=== PATIENT | male | born 1975 | race Asian ===

== ENCOUNTER 2018-12-19 14:46 | Emergency (ER) | payer MEDICAID, OTHER ==
[~2018-12-19] VITALS: Ht 167.6 cm; Wt 72.7 kg
[~2018-12-19 14:46] MED LIST: BENZ1TAB10 PO; HALO5TAB2 PO; LORA2TAB2 PO; LURA40 PO; OLAN7.5T2 PO; ZOLP10TA7 PO
[2018-12-19 17:09] VITALS: BP 125/75
== END 2018-12-19 17:10 | disposition home or self-care (01) ==
LOC: EMS 14:47
DX: Z11.1 Encounter for screening for respiratory tuberculosis (principal); F20.9 Schizophrenia, unspecified; F15.90 Other stimulant use, unspecified, uncomplicated; Z79.899 Other long term (current) drug therapy

== ENCOUNTER 2019-08-31 16:07 | Emergency (ER) | payer OTHER ==
[~2019-08-31] VITALS: Ht 167.6 cm; Wt 81.8 kg
[~2019-08-31 16:07] MED LIST changes: +LORA-1001 PO; -LORA2TAB2 PO; -LURA40 PO; +LURA40TA2 PO; +ZOLP-281 PO; -ZOLP10TA7 PO
[2019-08-31] MEDS ORDERED: AQUAPHOR OINTMENT 50 GM TUBE TP ONE (16:30)
[2019-08-31 17:41] VITALS: BP 155/91
== END 2019-08-31 18:09 | disposition home or self-care (01) ==
LOC: EMS 16:12
DX: L98.8 Other specified disorders of the skin and subcutaneous tissue (principal); F20.9 Schizophrenia, unspecified; F15.90 Other stimulant use, unspecified, uncomplicated; Z79.899 Other long term (current) drug therapy